=== PATIENT | male | born 1965 | race Hispanic/Latino ===

== ENCOUNTER 2020-02-25 16:46 | Emergency (ER) | payer OTHER, SELFPAY ==
[~2020-02-25 16:46] MED LIST: Iopamidol 370 76% 100 ML VIAL ONE
--- NOTE | 2020-02-25 19:52 | CT ---
HEAD CT WITHOUT CONTRAST: Date: 02-25-2020 Comparison: None History: Fall, trauma, pain. Technique: Axial CT imaging at 5 mm intervals from vertex through skull base without contrast. FINDINGS: The imaged paranasal sinuses and mastoid air cells are well aerated. No displaced calvarial fracture. No intracranial hemorrhage, midline shift, mass effect, or ventricular enlargement. IMPRESSION: No intracranial hemorrhage or displaced calvarial fracture. POS: SUZIE
--- NOTE | 2020-02-25 20:29 | CT ---
CT CERVICAL SPINE WITHOUT CONTRAST: Date: 02-25-2020 Comparison: None History: Fell from 6 ft ladder. Pain. Technique: Axial CT imaging at 2.5 mm intervals from skull base through lung apices without contrast. Coronal and sagittal reformatted imaging obtained. FINDINGS: There is moderate degenerative change at the atlantoaxial interspace. No anterolisthesis or retrolist hesis noted within the cervical spine. Imaged lung apices unremarkable. The C1 ring appears intact. The occipital condyles, dens, C1-2 articulation, craniocervical junction, and cervicothoracic junctio n demonstrate no acute findings. There is significant degenerative change involving the uncovertebral and facet joints on the right at C3-4. There is multilevel lower cervical spine facet hypertrophy on the left, most prominent at C6-7 and C7-T1. There is fusion of the facet joint on the left at C2-3. There is disc space narrowing wit h anterior osteophyte formation at C5-6 and C6-7. No acute fracture or dislocation. IMPRESSION: Cervical spine degenerative change with no displaced fracture or dislocation seen. POS: SUZIE
--- NOTE | 2020-02-25 20:49 | CT ---
CT OF THE CHEST, ABDOMEN, PELVIC, THORACIC SPINE, AND LUMBAR SPINE: Date: 02-25-2020 Comparison: None History: Fell from a 6 ft. ladder. Back pain and right side pain. Technique: Axial CT imaging at 5 mm intervals from the thoracic inlet through the pubic symphysis wit h intravenous contrast. Coronal and sagittal reformatted imaging obtained. FINDINGS: No axillary, mediastinal, or hilar lymphadenopathy is noted. No significant pleural, pericardial, or mediastinal fluid is noted. The extra spinal osseous structures of the chest demonstrate an acute nondisplaced fracture involving the lateral aspect of the right 10th rib and the lateral aspect of the right 9th rib. No left sided rib fractures are seen. There is a miniscule focus of lucency associated with the posterior pleural space on the right on axi al image 34 measuring in the 3 mm range. This could represent an extremely tiny pneumothorax or more likely, an interface between atelectatic lung and the pleura. This is best seen on axial image 33. There is no free intraperitoneal air or fluid seen. No evidence for hepatic or splenic laceration. Pancreas, gallbladder, adrenal glands, and kidneys leon ssly unremarkable. Fat containing inguinal hernia present on the left. The appendix is unremarkable. No evidence for large or small bowel obstruction. The vascular structures of the abdomen/pelvis demonstrate mild atherosclerotic calcification of the i ntrarenal abdominal aorta. No abdominal or pelvic lymphadenopathy is seen. Osseous structures of the pelvis demonstrate no acute findings. Dedicated evaluation of the thoracic spine and lumbar spine demonstrates no acute thoracic or lumbar spine fracture. IMPRESSION: 1. Nondisplaced lateral right 9th and 10th rib fractures. Tiny area of relative lucency on axial imag e 33 within the posterior mid right hemithorax likely represents atelectasis with adjacent aerated ren ng. An alternative consideration would be an extremely tiny pneumothorax. 2. No free intraperitoneal air or free fluid within the abdomen or pelvis. No evidence for visceral o rgan injury. POS: SUZIE
== END 2020-02-25 21:35 | disposition home or self-care (01) ==
LOC: ERS 16:46
DX: S22.41XA Multiple fractures of ribs, right side, initial encounter for closed fracture (principal); E78.5 Hyperlipidemia, unspecified; E11.9 Type 2 diabetes mellitus without complications; I10 Essential (primary) hypertension; Z79.84 Long term (current) use of oral hypoglycemic drugs; Z79.899 Other long term (current) drug therapy; W17.89XA Other fall from one level to another, initial encounter
CPT/HCPCS: 70450; 71260; 72125; 74177; Q9967

== ENCOUNTER 2020-02-27 12:36 | Outpatient (CLI) | payer OTHER ==
--- NOTE | 2020-02-27 13:46 | RAD ---
EXAM: Chest 2 views: HISTORY: History of hemothorax and rib fractures COMPARISON: 02/25/2020, CT chest FINDINGS: There is a normal-sized cardiomediastinal silhouette. No pneumothorax is seen. There is no evidence of consolidation, mass, or pleural effusion. The rib fractures seen on CT are not visualized on this exam. IMPRESSION: No evidence of acute cardiopulmonary disease
== END 2020-02-27 12:37 | disposition home or self-care (01) ==
LOC: BICRAD 12:36
PROVIDERS: ATTEND Surgery
DX: J94.2 Hemothorax (principal); S22.39XD Fracture of one rib, unspecified side, subsequent encounter for fracture with routine healing
CPT/HCPCS: 71046